=== PATIENT | female | born 1955 | race Asian ===

== ENCOUNTER 2018-02-26 15:32 | Emergency (ER) | payer OTHER ==
[~2018-02-26] VITALS: Ht 147.3 cm; Wt 53.8 kg
[2018-02-26] MEDS ORDERED: HYDROcodone/APAP 5/325 TABLET ONE (16:39)
[2018-02-26] MEDS ORDERED: HYDROcodone/APAP 5/325 TABLET PO ONE (17:00)
[2018-02-26 17:18] VITALS: BP 172/88
== END 2018-02-26 17:22 | disposition home or self-care (01) ==
LOC: ED 17:05
DX: S20.211A Contusion of right front wall of thorax, initial encounter (principal); S90.31XA Contusion of right foot, initial encounter; E78.00 Pure hypercholesterolemia, unspecified; W18.39XA Other fall on same level, initial encounter; Y93.89 Activity, other specified; Y92.091 Bathroom in other non-institutional residence as the place of occurrence of the external cause; Y99.8 Other external cause status
CPT/HCPCS: 99284

== ENCOUNTER → 2018-05-08 | Outpatient (CLI) | payer OTHER | END | disposition home or self-care (01) | LOC: CFH 12:20 | PROVIDERS: ATTEND Family Medicine | DX: Z13.820 Encounter for screening for osteoporosis (principal); Z78.0 Asymptomatic menopausal state | CPT/HCPCS: 77080 ==

== ENCOUNTER 2018-09-17 18:04 | Emergency (ER) | payer OTHER ==
[~2018-09-17] VITALS: Ht 149.9 cm; Wt 53.1 kg
[2018-09-17 19:00] LABS: BASOPHILS # (AUTO) 0.03 x10^3/uL (0-0.1); BASOPHILS % (AUTO) 0 % (0-1); EOSINOPHILS % (AUTO) 0 % (1-7); LYMPHOCYTES # (AUTO) 1.82 x10^3/uL (1-3.4); LYMPHOCYTES % (AUTO) 18 % (22-44); MD NO; MEAN CORPUSCULAR HEMOGLOBIN 30.6 pg (27.0-34.8); MEAN CORPUSCULAR HGB CONC 34.3 g/dL (32.4-35.8); MEAN CORPUSCULAR VOLUME 89.2 fL (80-100); MEAN PLATELET VOLUME 7.7 fL (7.4-10.4); MONOCYTES # (AUTO) 0.43 x10^3/uL (0.2-0.8); MONOCYTES % (AUTO) 4 % (2-9); NEUTROPHILS # (AUTO) 8.08 x10^3/uL (1.8-6.8); NEUTROPHILS % (AUTO) 78 % (42-75); PLATELET COUNT 311 x10^3/uL (130-400); RED BLOOD COUNT 5.42 x10^6/uL (3.82-5.3); RED CELL DISTRIBUTION WIDTH 13.5 % (9.6-15.2)
[2018-09-17 19:09] LABS: ALANINE AMINOTRANSFERASE 37 U/L (12-78); ALBUMIN 4.5 g/dL (3.4-5.0); ANION GAP 7 mmol/L (5-15); CALCIUM 9.7 mg/dL (8.5-10.1); CHLORIDE 109 mmol/L (98-107); CREATININE 0.73 mg/dL (0.55-1.02)
[2018-09-17 19:12] LABS: ALKALINE PHOSPHATASE 79 U/L (45-117); BILIRUBIN,TOTAL 1.1 mg/dL (0.2-1.0); TOTAL PROTEIN 8.8 g/dL (6.4-8.2)
--- NOTE | 2018-09-17 19:27 | NUR ---
PT PRESENTS TO ED C/O BILATERAL LOWER ABD PAIN STARTING 1100 THIS AM W/ ASSOCIATED DIAPHORESIS. PT STATES PAIN SINCE THEN THAT HAS "COME AND GONE." PT STATES ONE EPISODE OF BLOOD ON TOILET PAPER AFTER BM. STATES SINCE INITIAL EPISODE NO MORE DIAPHORESIS. DENIES ANY LOC OR DIZZINESS. DENIES ANY ABD HX. DENIES ANY FURTHER GI/ SYMPTOMS. MONITORING APPLIED. VSS. CALL LIGHT WITHIN REACH. PA AT BEDSIDE. SPOUSE AT BEDSIDE. PT AWARE OF NEED OF UA. Addendum: 09/17/18 at 1947 by SACHIN FIRST CONTACT:PT PRESENTS TO ED C/O BILATERAL LOWER ABD PAIN STARTING 1100 THIS AM W/ ASSOCIATED DIAPHORESIS. PT STATES PAIN SINCE THEN THAT HAS "COME AND GONE." PT STATES ONE EPISODE OF BLOOD ON TOILET PAPER AFTER BM. STATES SINCE INITIAL EPISODE NO MORE DIAPHORESIS. DENIES ANY LOC OR DIZZINESS. DENIES ANY ABD HX. DENIES ANY FURTHER GI/ SYMPTOMS. MONITORING APPLIED. VSS. CALL LIGHT WITHIN REACH. PA AT BEDSIDE. SPOUSE AT BEDSIDE. PT AWARE OF NEED OF UA.
[2018-09-17 20:15] VITALS: BP 153/70
== END 2018-09-17 20:17 | disposition home or self-care (01) ==
LOC: ED 20:11
DX: K64.8 Other hemorrhoids (principal); E78.00 Pure hypercholesterolemia, unspecified
CPT/HCPCS: 36415; 74021; 80053; 83690; 85025; 99284